=== PATIENT | female | born 1965 | race Caucasian/White ===

== ENCOUNTER 2017-05-20 18:27 | Inpatient (IN) | payer SELFPAY ==
--- NOTE | 2017-05-20 19:07 | ER Document Report ---
ED Medical Screen (RME) - General Chief Complaint: Nausea Stated Complaint: RIGHT SHOULDER PAIN,NAUSEA Time Seen by Provider: 05/20/17 19:06 TRAVEL OUTSIDE OF THE [place] IN LAST 30 DAYS: No - HPI Notes: 05/20/17 19:06 Right shoulder blade pain right lower flank pain mild right upper quadrant discomfort with nausea ongoing 3 weeks unknown if related with food decreased appetite seen by PCP approximately 2-3 weeks ago prescribe oxycodone no relief of symptoms. - Related Data Allergies/Adverse Reactions: No Known Allergies Allergy (Unverified 05/20/17 18:32) Past Medical History Renal/ Medical History: Denies: Hx Peritoneal Dialysis Review of Systems - Review of Systems Constitutional: Other - Shoulder pain nausea Physical Exam - Vital signs Vitals: Temp Pulse Resp BP Pulse Ox 97.9 F 105 H 16 137/94 H 96 05/20/17 18:31 05/20/17 18:31 05/20/17 18:31 05/20/17 18:31 05/20/17 18:31 - Abdominal Notes: Mild right upper quadrant discomfort when palpating Course - Vital Signs Vital signs: Temp Pulse Resp BP Pulse Ox 97.9 F 105 H 16 137/94 H 96 05/20/17 18:31 05/20/17 18:31 05/20/17 18:31 05/20/17 18:31 05/20/17 18:31
[2017-05-20] MEDS ORDERED: NORMAL SALINE 1000 ML 1,000 ML IV ONE ×2 (19:08→21:52)
[2017-05-20 19:44] LABS: ABSOLUTE EOSINOPHILS # (AUTO) 0.1 10^3/uL (0.0-0.6); ABSOLUTE LYMPHOCYTES (AUTO) 1.1 10^3/uL (0.5-4.7); ABSOLUTE MONOCYTES (AUTO) 0.4 10^3/uL (0.1-1.4); ABSOLUTE NEUT (AUTO) 3.4 10^3/uL (1.7-8.2); BASOPHILS % (AUTO) 0.6 % (0-2); EOSINOPHILS % (AUTO) 1.9 % (0-6); HEMATOCRIT 38.6 % (36.0-47.0); HEMOGLOBIN 12.7 g/dL (12.0-15.5); HGB HCT DIFFERENCE -0.5; LYMPHOCYTES % (AUTO) 21.6 % (13-45); MEAN CORPUSCULAR HEMOGLOBIN 29.5 pg (27.0-33.4); MEAN CORPUSCULAR VOLUME 89 fl (80-97); MONOCYTES % (AUTO) 7.7 % (3-13); RED BLOOD COUNT 4.31 10^6/uL (3.72-5.28); RED CELL DISTRIBUTION WIDTH 15.8 % (11.5-14.0); SEGMENTED NEUTROPHILS % (AUTO) 68.2 % (42-78); WHITE BLOOD COUNT 4.9 10^3/uL (4.0-10.5)
[2017-05-20 20:01] LABS: ALANINE AMINOTRANSFERASE 111 U/L (9-52); ALBUMIN 4.4 g/dL (3.5-5.0); ALKALINE PHOSPHATASE 127 U/L (38-126); ANION GAP 15 (5-19); ASPARTATE AMINO TRANSFERASE 233 U/L (14-36); BILIRUBIN,DIRECT 0.8 mg/dL (0.0-0.4); BILIRUBIN,TOTAL 1.1 mg/dL (0.2-1.3); BLOOD UREA NITROGEN 23 mg/dL (7-20); CALCIUM 11.5 mg/dL (8.4-10.2); CARBON DIOXIDE 29 mmol/L (22-30); CHLORIDE 103 mmol/L (98-107); GLUCOSE 93 mg/dL (75-110); LIPASE 250.7 U/L (23-300); POTASSIUM 5.1 mmol/L (3.6-5.0); SODIUM 146.6 mmol/L (137-145); TOTAL PROTEIN 7.5 g/dL (6.3-8.2)
[2017-05-20] MEDS ORDERED: LORAZEPAM INJ 2 MG/1 ML VIAL IV ONE (20:30)
--- NOTE | 2017-05-20 20:30 | RADIOLOGY REPORT (SQ) ---
EXAM DESCRIPTION: SHOULDER RIGHT 2 OR MORE VIEWS COMPLETED DATE/TIME: 05/20/2017 8:15 pm REASON FOR STUDY: ruq pain right shoulder pain COMPARISON: None. NUMBER OF VIEWS: Three views. TECHNIQUE: Internal rotation, external rotation, and Y view images acquired of the right shoulder. LIMITATIONS: None. FINDINGS: MINERALIZATION: Normal. BONES: No acute fracture or dislocation. Patchy small lucencies in the humeral head and neck. JOINTS: No dislocation. VISUALIZED LUNGS AND RIBS: No pneumothorax. No rib fracture. SOFT TISSUES: No radiopaque foreign body. OTHER: No other significant finding. IMPRESSION: PATCHY SMALL LUCENCIES IN THE HUMERAL HEAD AND NECK CONCERNING FOR POSSIBLE METASTASES. MYELOMA IS ANOTHER CONSIDERATION. NO ACUTE FINDINGS. TECHNICAL DOCUMENTATION: JOB ID: [id number] [employer]- All Rights Reserved
[2017-05-20] MEDS ORDERED: KETOROLAC TROMETHAMINE INJ/PF 30 MG/1 ML SDV IV ONE (20:45)
[2017-05-20 20:52] LABS: APPEARANCE,URINE SLIGHTLY-CLOUDY; BILIRUBIN,URINE SMALL (NEGATIVE); CALCIUM OXALATE CRYSTALS,URINE MODERATE /HPF; GLUCOSE, URINE NEGATIVE (NEGATIVE); KETONES,URINE NEGATIVE (NEGATIVE); LEUKOCYTE ESTERASE,URINE NEGATIVE (NEGATIVE); NITRITE,URINE NEGATIVE (NEGATIVE); PROTEIN,URINE NEGATIVE (NEGATIVE); URINE SPECIFIC GRAVITY 1.028
--- NOTE | 2017-05-20 21:10 | ER Document Report ---
ED General - General Chief Complaint: Nausea Stated Complaint: NAUSEA Time Seen by Provider: 05/20/17 19:06 Mode of Arrival: Ambulatory Information source: Patient Notes: This is a 51-year-old female patient presents to the emergency department with about a 3 week history of right posterior shoulder pain. Did have some left shoulder pain as well. Denies any major abdominal pain. Did have some nausea and vomiting about 3 weeks ago. Has also some pain in the left knee. TRAVEL OUTSIDE OF THE [place] IN LAST 30 DAYS: No - HPI Onset/Duration: Gradual, Constant, Intermittent Quality of pain: Dull Severity: Moderate Pain Level: 3 Associated symptoms: None Exacerbated by: Movement Similar symptoms previously: No Recently seen / treated by doctor: No - Related Data Allergies/Adverse Reactions: No Known Allergies Allergy (Unverified 05/20/17 18:32) Past Medical History - General Information source: Patient - Social History Smoking Status: Current Every Day Smoker Chew tobacco use (# tins/day): No - 5-6 cigarettes/day Frequency of alcohol use: None Drug Abuse: None Family History: Reviewed & Not Pertinent Patient has suicidal ideation: No Patient has homicidal ideation: No - Past Medical History Cardiac Medical History: Reports: None Pulmonary Medical History: Reports: None EENT Medical History: Reports: None Neurological Medical History: Reports: None Endocrine Medical History: Reports: None Renal/ Medical History: Reports: None. Denies: Hx Peritoneal Dialysis Malignancy Medical History: Reports: None GI Medical History: Reports: None Musculoskeltal Medical History: Reports Other - Osteoarthritis of the knees Past Surgical History: Reports: Hx Section - x2 Review of Systems - Review of Systems Constitutional: No symptoms reported EENT: No symptoms reported Cardiovascular: No symptoms reported Respiratory: No symptoms reported Gastrointestinal: No symptoms reported Genitourinary: No symptoms reported Female Genitourinary: No symptoms reported Musculoskeletal: No symptoms reported, See HPI Skin: No symptoms reported Hematologic/Lymphatic: No symptoms reported Neurological/Psychological: No symptoms reported Physical Exam - Vital signs Vitals: Temp Pulse Resp BP Pulse Ox 97.9 F 105 H 16 137/94 H 96 05/20/17 18:31 05/20/17 18:31 05/20/17 18:31 05/20/17 18:31 05/20/17 18:31 Interpretation: Normal - General General appearance: Appears well, Alert - HEENT Head: Normocephalic, Atraumatic Eyes: Normal Pupils: PERRL - Respiratory Respiratory status: No respiratory distress Chest status: Nontender Breath sounds: Normal Chest palpation: Normal - Cardiovascular Rhythm: Regular Heart sounds: Normal auscultation Murmur: No - Abdominal Inspection: Normal Distension: No distension Bowel sounds: Normal Tenderness: Nontender Organomegaly: No organomegaly - Back Back: Normal, Nontender - Extremities General upper extremity: Normal inspection, Nontender, Normal color, Normal ROM , Normal temperature General lower extremity: Normal inspection, Nontender, Normal color, Normal ROM , Normal temperature, Normal weight bearing. No: Mian's sign Shoulder: Tender, Other - Mild tenderness to palpation of the posterior right scapula and proximal humerus area there is tenderness to palpation of the left medial knee. No: Limited ROM - Neurological Neuro grossly intact: Yes Cognition: Normal Orientation: AAOx4 Belsano Coma Scale Eye Opening: Spontaneous Anna Coma Scale Verbal: Oriented Anna Coma Scale Motor: Obeys Commands Belsano Coma Scale Total: 15 Speech: Normal Motor strength normal: LUE, RUE, LLE, RLE Sensory: Normal - Psychological Associated symptoms: Normal affect, Normal mood - Skin Skin Temperature: Warm Skin Moisture: Dry Skin Color: Normal Course - Re-evaluation Re-evalutation: 05/20/17 21:53 Etiologies interpretation is concerning for metastatic versus a primary myeloma. Ordering x-rays of the knee. Will give a second liter of fluid. Anti -inflammatories have been given. Hepatitis panel is ordered. May need to expand workup as well. Possible admit. 05/20/17 23:01 I did consult with the hospitalist. Will admit at this time. 05/20/17 23:01 Abdomen Ultrasound 05/20/17 19:06 IMPRESSION: HEPATOMEGALY WITH MULTIPLE LARGE HYPOECHOIC LESIONS THROUGHOUT THE LIVER, HIGHLY SUSPICIOUS FOR EXTENSIVE METASTASES. RECOMMEND FOLLOWUP WITH CT. Shoulder X-Ray 05/20/17 19:06 IMPRESSION: PATCHY SMALL LUCENCIES IN THE HUMERAL HEAD AND NECK CONCERNING FOR POSSIBLE METASTASES. MYELOMA IS ANOTHER CONSIDERATION. NO ACUTE FINDINGS. Chest X-Ray 05/20/17 20:46 IMPRESSION: NO SIGNIFICANT RADIOGRAPHIC FINDING IN THE CHEST. Knee X-Ray 05/20/17 21:50 IMPRESSION: NEGATIVE STUDY OF THE LEFT KNEE. NO EXPLANATION FOR PAIN. - Vital Signs Vital signs: Temp Pulse Resp BP Pulse Ox 97.9 F 105 H 16 137/94 H 96 05/20/17 18:31 05/20/17 18:31 05/20/17 18:31 05/20/17 18:31 05/20/17 18:31 - Laboratory Result Diagrams: 05/20/17 19:30 05/20/17 19:30 Laboratory results interpreted by me: 05/20/17 05/20/17 05/20/17 19:30 19:30 19:30 RDW 15.8 H Plt Count 135 L ESR Sodium 146.6 H Potassium 5.1 H BUN 23 H Est GFR ( Amer) 58 L Est GFR (Non-Af Amer) 48 L Calcium 11.5 H Direct Bilirubin 0.8 H AST 233 H ALT 111 H Alkaline Phosphatase 127 H C-Reactive Protein TSH Urine Bilirubin SMALL H Urine Urobilinogen 4.0 H 05/20/17 05/20/17 05/20/17 19:30 19:30 19:30 RDW Plt Count ESR 31 H Sodium Potassium BUN Est GFR ( Amer) Est GFR (Non-Af Amer) Calcium Direct Bilirubin AST ALT Alkaline Phosphatase C-Reactive Protein 38.6 H TSH 6.65 H Urine Bilirubin Urine Urobilinogen Discharge - Discharge Clinical Impression: Multiple lesions of metastatic malignancy Disposition: ADMITTED INPATIENT Admitting Provider: Hospitalist - Dr. Lynn Unit Admitted: Telemetry
--- NOTE | 2017-05-20 21:23 | RADIOLOGY REPORT (SQ) ---
EXAM DESCRIPTION: CHEST PA/LAT COMPLETED DATE/TIME: 05/20/2017 9:09 pm REASON FOR STUDY: right chest pain COMPARISON: None. EXAM PARAMETERS: NUMBER OF VIEWS: two views TECHNIQUE: Digital Frontal and Lateral radiographic views of the chest acquired. RADIATION DOSE: NA LIMITATIONS: none FINDINGS: LUNGS AND PLEURA: No opacities, masses or pneumothorax. No pleural effusion. MEDIASTINUM AND HILAR STRUCTURES: No masses or contour abnormalities. HEART AND VASCULAR STRUCTURES: Heart normal size. No evidence for failure. BONES: No acute findings. HARDWARE: None in the chest. OTHER: No other significant finding. IMPRESSION: NO SIGNIFICANT RADIOGRAPHIC FINDING IN THE CHEST. TECHNICAL DOCUMENTATION: JOB ID: [id number] [employer]- All Rights Reserved
--- NOTE | 2017-05-20 22:05 | RADIOLOGY REPORT (SQ) ---
EXAM DESCRIPTION: U/S ABDOMEN LIMITED W/O DOP COMPLETED DATE/TIME: 05/20/2017 9:56 pm REASON FOR STUDY: ruq pain right shoulder pain COMPARISON: None. TECHNIQUE: Dynamic and static grayscale images acquired of the abdomen and recorded on PACS. Additio nal selected color Doppler and spectral images recorded. LIMITATIONS: None. FINDINGS: PANCREAS: No masses. Visualized pancreatic duct normal caliber. LIVER: Enlarged, measuring 23 cm. Multiple large hypoechoic lesions throughout the liver. No dilate d ducts. LIVER VASCULATURE: Normal directional flow of the main portal vein and hepatic veins. GALLBLADDER: No stones. Normal wall thickness. No pericholecystic fluid. ULTRASOUND-DETECTED WILLS'S SIGN: Negative. INTRAHEPATIC DUCTS AND COMMON DUCT: CBD and intrahepatic ducts normal caliber. No filling defects. INFERIOR VENA CAVA: Normal flow. AORTA: No aneurysm. RIGHT KIDNEY: Normal size. Normal echogenicity. No solid or suspicious masses. No hydronephrosis. No calcifications. PERITONEAL AND RIGHT PLEURAL SPACE: No ascites or effusions. OTHER: No other significant findings. IMPRESSION: HEPATOMEGALY WITH MULTIPLE LARGE HYPOECHOIC LESIONS THROUGHOUT THE LIVER, HIGHLY SUSPICI OUS FOR EXTENSIVE METASTASES. RECOMMEND FOLLOWUP WITH CT. TECHNICAL DOCUMENTATION: JOB ID: [id number] [employer]- All Rights Reserved
--- NOTE | 2017-05-20 22:21 | RADIOLOGY REPORT (SQ) ---
EXAM DESCRIPTION: KNEE LEFT 3 VIEWS COMPLETED DATE/TIME: 05/20/2017 10:11 pm REASON FOR STUDY: pain COMPARISON: None. NUMBER OF VIEWS: Four views. TECHNIQUE: AP, lateral, and sunrise patella radiographic images acquired of the left knee. LIMITATIONS: None. FINDINGS: MINERALIZATION: Normal. BONES: No acute fracture or dislocation. No worrisome bone lesions. No significant osteophytes. JOINT: No effusion. No chondrocalcinosis. OTHER: No other significant finding. IMPRESSION: NEGATIVE STUDY OF THE LEFT KNEE. NO EXPLANATION FOR PAIN. TECHNICAL DOCUMENTATION: JOB ID: [id number] [employer]- All Rights Reserved
[2017-05-20 22:36] LABS: THYROID STIMULATING HORMONE 6.65 uIU/mL (0.47-4.68)
[2017-05-20] MEDS ORDERED: ACETAMINOPHEN 325 MG TABLET PO PRN (22:55)
[2017-05-20] MEDS ORDERED: MAG HYDROX/AL HYDROX/SIMETH SUSP 30 ML UDCUP PO PRN (22:55)
[2017-05-20] MEDS ORDERED: ONDANSETRON HCL INJ/PF 4 MG/2 ML SDV IV PRN (22:55)
[2017-05-20] MEDS ORDERED: IPRATROPIUM/ALBUTEROL 0.5-2.5 MG/3 ML AMPUL NEB PRN (22:55)
[2017-05-20] MEDS ORDERED: HYDROCODONE/ACETAMINOPHEN 5-325 MG TABLET PO PRN (23:13)
[2017-05-20] MEDS ORDERED: LACTULOSE SYRUP 20 GM/30 ML UDCUP PO ONE (23:16)
[2017-05-20 23:30] LABS: PROTHROMBIN TIME 13.7 SEC (11.4-15.4)
[2017-05-21] MEDS: NORMAL SALINE 1000 ML 1,000 ML IV SCH ×3 (03:27→11:38)
--- NOTE | 2017-05-21 03:28 | RADIOLOGY REPORT (SQ) ---
EXAM DESCRIPTION: CT CHEST WITH COMPLETED DATE/TIME: 05/21/2017 3:02 am REASON FOR STUDY: liver masses unknown primary COMPARISON: None. TECHNIQUE: CT scan of the chest performed using helical scanning technique with dynamic intravenous contrast injection. Images reviewed with lung, soft tissue and bone windows. Reconstructed coronal and sagittal MPR images reviewed. All images stored on PACS. All CT scanners at this facility use dose modulation, iterative reconstruction, and/or weight based d osing when appropriate to reduce radiation dose to as low as reasonably achievable (ALARA). [facility]: Dose Right [facility]: CareDose [facility]: Dose Right [facility]: Teradose 4D [facility]: Eqvilibria CONTRAST TYPE AND DOSE: contrast/concentration: Isovue 370.00 mg/ml; Total Contrast Delivered: 100.0 ml; Total Saline Delivered: 72.1 ml RENAL FUNCTION: Creatinine 1.2 RADIATION DOSE: . LIMITATIONS: None. FINDINGS: LUNGS AND PLEURA: 2.1 cm ovoid soft tissue attenuation mass of the right lower lobe, image 34 of series 3 Small left lower lobar atelectasis or scar. HILAR AND MEDIASTINAL STRUCTURES: [id number] mediastinal lymphadenopathy includes a 1.6 cm pret akbar lymph node, image 21 of series 3. HEART AND VASCULAR STRUCTURES: No aneurysm or dissection. No central pulmonary emboli. No pericardi al effusion. HARDWARE: None in the chest. UPPER ABDOMEN: See separate report of the CT of the abdomen. THYROID AND OTHER SOFT TISSUES: No masses. No adenopathy. BONES: Mild right 7th posterolateral rib deformity may indicate prior injury. OTHER: No other significant finding. IMPRESSION: 2.1 cm right lower lobar pulmonary mass and mild -moderate mediastinal lymphadenopathy. Abnormal CT of the abdomen pelvis reported separately. Malignancy is of 1st consideration. TECHNICAL DOCUMENTATION: JOB ID: [id number] Quality ID # [id number]: Final reports with documentation of one or more dose reduction techniques (e.g., Au tomated exposure control, adjustment of the mA and/or kV according to patient size, use of iterative reconstruction technique) 2010 [employer]- All Rights Reserved
--- NOTE | 2017-05-21 04:35 | RADIOLOGY REPORT (SQ) ---
EXAM DESCRIPTION: CT ABD/PELVIS WITH IV ORAL COMPLETED DATE/TIME: 05/21/2017 3:02 am REASON FOR STUDY: liver masses unknown primary COMPARISON: None. TECHNIQUE: CT scan of the abdomen and pelvis performed using helical scanning technique with dynamic intravenous contrast injection. No oral contrast. Images reviewed with lung, soft tissue, and bone windows. Reconstructed coronal and sagittal MPR images reviewed. Delayed images for evaluation of the urinary system also acquired. All images stored on PACS. All CT scanners at this facility use dose modulation, iterative reconstruction, and/or weight based d osing when appropriate to reduce radiation dose to as low as reasonably achievable (ALARA). [facility]: Dose Right [facility]: CareDose [facility]: Dose Right [facility]: Teradose 4D [facility]: Cardio control CONTRAST TYPE AND DOSE: 100 cc Isovue 370- low osmolar. RENAL FUNCTION: Creatinine 1.2 RADIATION DOSE: Up-to-date CT equipment and radiation dose reduction techniques were employed. CTDIv ol: 21.1 mGy. DLP: 2947 mGy-cm.. LIMITATIONS: None. FINDINGS: LOWER CHEST: See separate report of the CT of the chest. LIVER: Numerous solid liver masses with central diminished attenuation include a 3.6 cm left hepatic mass and 4.2 cm right hepatic mass. SPLEEN: Multiple small ovoid masses include a 1.8 cm mass, image 49 of series 3. PANCREAS: No masses. No significant calcifications. No adjacent inflammation or peripancreatic fluid collections. Pancreatic duct not dilated. GALLBLADDER: No identified stones by CT criteria. No inflammatory changes to suggest cholecystitis. ADRENAL GLANDS: No significant masses or asymmetry. RIGHT KIDNEY AND URETER: No solid masses. No significant calcifications. No hydronephrosis or hyd roureter. LEFT KIDNEY AND URETER: No solid masses. No significant calcifications. No hydronephrosis or hydr oureter. AORTA AND VESSELS: No aneurysm. No dissection. Renal arteries, SMA, celiac without stenosis. RETROPERITONEUM: No retroperitoneal adenopathy, hemorrhage or masses. BOWEL AND PERITONEAL CAVITY: Moderate colonic diverticulosis. Mild diffuse bowel wall thickening of the sigmoid colon. Moderate mediastinal lymphadenopathy includes a 1.3 cm lymph node in the right up per abdomen, image 59 of series 3. APPENDIX: Normal. PELVIS: No mass. No free fluid. Normal bladder. ABDOMINAL WALL: No masses. Moderate protrude rinse of the anterior abdomen and 3.5 cm umbilical fat only hernia. BONES: Mild vertebral height loss at the L4 level. Moderate -large disc bulge -osteophyte complex at the L5-S1 level causes mild -moderate central spinal canal stenosis and moderate bilateral L5 forami nal stenoses. OTHER: No other significant finding. IMPRESSION: Numerous liver and spleen masses, moderate upper abdominal lymphadenopathy, and mild dif fuse sigmoid bowel wall thickening. Abnormal CT of the chest reported separately. Malignancy is of 1st consideration. TECHNICAL DOCUMENTATION: JOB ID: [id number] Quality ID # [id number]: Final reports with documentation of one or more dose reduction techniques (e.g., Au tomated exposure control, adjustment of the mA and/or kV according to patient size, use of iterative reconstruction technique) 2010 [employer]- All Rights Reserved
[2017-05-21] MEDS: HEPARIN SOD (PORCINE) 5,000 UNIT/ML 1 ML SYRINGE SUBCUT SCH ×2 (05:04→13:47)
--- NOTE | 2017-05-21 05:34 | PDOC H&P ---
History of Present Illness Admission Date/PCP: 05/20/17 22:55 Patient complains of: Poor appetite and joint pain History of Present Illness: BONIFACIO WHITNEY is a 51 year old female with a past medical history of osteoarthritis, obesity and tobacco is been her usual state of health until approximately 3 weeks ago noted to have exceptional early satiety and bilateral shoulder pain. She denies chest pain, shortness of breath fever chills nausea or vomiting. In the emergency room she is found to have abnormal LFTs thrombocytopenia, hypercalcemia, hyper kalemia and right upper quadrant ultrasound concerning for liver mass. She started on IV fluid hydration and referred to the hospitalist for admission. She has not had routine Pap, colonoscopy or mammography. Her family history is notable for a brother with hepatitis C and hepatocellular carcinoma. Past Medical History Cardiac Medical History: Reports: None Pulmonary Medical History: Reports: None EENT Medical History: Reports: None Neurological Medical History: Reports: None Endocrine Medical History: Reports: None Renal/ Medical History: Reports: None Malignancy Medical History: Reports: None GI Medical History: Reports: None Musculoskeltal Medical History: Reports: Arthritis, Other - Osteoarthritis of the knees Psychiatric Medical History: Reports: None, Tobacco Dependency Past Surgical History Past Surgical History: Reports: Section - x2 Social History Smoking Status: Current Some Day Smoker Cigarettes Packs Per Day: 1 Number of Years Smokin Last Time Smoked: 05/20/2017 Frequency of Alcohol Use: None Hx Recreational Drug Use: No Drugs: None Hx Prescription Drug Abuse: No - Advance Directive Resuscitation Status: Full Code Family History Family History: Other - Brother with hepatitis C and hepatocellular carcinoma Parental Family History Reviewed: Yes Children Family History Reviewed: Yes Sibling(s) Family History Reviewed.: Yes Medication/Allergy Home Medications: No Home Medications 05/21/17 Allergies/Adverse Reactions: No Known Allergies Allergy (Unverified 05/20/17 18:32) Review of Systems Constitutional: PRESENT: as per HPI, anorexia, fatigue. ABSENT: night sweats Eyes: ABSENT: visual disturbances Ears: ABSENT: hearing changes Cardiovascular: ABSENT: chest pain, dyspnea on exertion, edema, orthropnea, palpitations Respiratory: ABSENT: cough, hemoptysis Gastrointestinal: ABSENT: abdominal pain, constipation, diarrhea, hematemesis, hematochezia, nausea, vomiting Genitourinary: ABSENT: dysuria, hematuria Musculoskeletal: PRESENT: as per HPI Integumentary: ABSENT: rash, wounds Neurological: ABSENT: abnormal gait, abnormal speech, confusion, dizziness, focal weakness, syncope Psychiatric: ABSENT: anxiety, depression, homidical ideation, suicidal ideation Endocrine: ABSENT: cold intolerance, heat intolerance, polydipsia, polyuria Hematologic/Lymphatic: ABSENT: easy bleeding, easy bruising Physical Exam Vital Signs: Temp Pulse Resp BP Pulse Ox 98.4 F 91 14 131/63 H 97 05/21/17 03:50 05/21/17 03:50 05/21/17 03:50 05/21/17 03:50 05/21/17 03:50 Intake & Output 05/19/17 05/20/17 05/21/17 11:59 11:59 11:59 Intake Total 513 Balance 513 Weight 114.7 kg General appearance: PRESENT: no acute distress, obese Head exam: PRESENT: atraumatic, normocephalic Eye exam: PRESENT: conjunctiva pink, EOMI, PERRLA. ABSENT: scleral icterus Ear exam: PRESENT: normal external ear exam Mouth exam: PRESENT: moist, tongue midline Neck exam: ABSENT: carotid bruit, JVD, lymphadenopathy, thyromegaly Respiratory exam: PRESENT: clear to auscultation jonnathan. ABSENT: crackles, decreased breath sounds, prolonged expiratory phas, rales, retraction, rhonchi, wheezes Cardiovascular exam: PRESENT: RRR. ABSENT: diastolic murmur, rubs, systolic murmur Pulses: PRESENT: normal dorsalis pedis pul Vascular exam: PRESENT: normal capillary refill GI/Abdominal exam: PRESENT: normal bowel sounds, soft. ABSENT: distended, guarding, mass, organolmegaly, rebound, tenderness Musculoskeletal exam: PRESENT: other - Tender to palpation of the right scapula Neurological exam: PRESENT: alert, awake, oriented to person, oriented to place , oriented to time, oriented to situation, CN II-XII grossly intact. ABSENT: motor sensory deficit Psychiatric exam: PRESENT: appropriate affect, normal mood. ABSENT: homicidal ideation, suicidal ideation Skin exam: PRESENT: dry, intact, warm. ABSENT: cyanosis, rash Results Impressions: Abdomen Ultrasound 05/20/17 19:06 IMPRESSION: HEPATOMEGALY WITH MULTIPLE LARGE HYPOECHOIC LESIONS THROUGHOUT THE LIVER, HIGHLY SUSPICIOUS FOR EXTENSIVE METASTASES. RECOMMEND FOLLOWUP WITH CT. Shoulder X-Ray 05/20/17 19:06 IMPRESSION: PATCHY SMALL LUCENCIES IN THE HUMERAL HEAD AND NECK CONCERNING FOR POSSIBLE METASTASES. MYELOMA IS ANOTHER CONSIDERATION. NO ACUTE FINDINGS. Chest X-Ray 05/20/17 20:46 IMPRESSION: NO SIGNIFICANT RADIOGRAPHIC FINDING IN THE CHEST. Knee X-Ray 05/20/17 21:50 IMPRESSION: NEGATIVE STUDY OF THE LEFT KNEE. NO EXPLANATION FOR PAIN. Abdomen/Pelvis CT 05/21/17 00:00 IMPRESSION: Numerous liver and spleen masses, moderate upper abdominal lymphadenopathy, and mild diffuse sigmoid bowel wall thickening. Abnormal CT of the chest reported separately. Malignancy is of 1st consideration. Chest CT 05/21/17 00:00 IMPRESSION: 2.1 cm right lower lobar pulmonary mass and mild -moderate mediastinal lymphadenopathy. Abnormal CT of the abdomen pelvis reported separately. Malignancy is of 1st consideration. Assessment & Plan - Diagnosis (1) Multiple lesions of metastatic malignancy Is this a current diagnosis for this admission?: Yes Plan: Patient is at risk for lost to follow-up telemetry admission, SPEP and UPEP ordered CT abdomen and chest pending. Surgical consult if biopsy viable and oncology follow-up. (2) Hypercalcemia Is this a current diagnosis for this admission?: Yes Plan: IV fluid hydration and loop diuretic reevaluation of chemistry consider bisphosphonate (3) Hyperkalemia Is this a current diagnosis for this admission?: Yes Plan: IV fluid hydration Kayexalate reevaluation of chemistry (4) Tobacco dependence Is this a current diagnosis for this admission?: Yes Plan: Tobacco Dependence patient received tobacco cessation counseling and offered nicotine replacement options. - Time Time Spent: 50 to 70 Minutes - Inpatient Certification Medical Necessity: Need Close Monitoring Due to Risk of Patient Decompensation
[2017-05-21 06:21] LABS: ABSOLUTE EOSINOPHILS # (AUTO) 0.1 10^3/uL (0.0-0.6); ABSOLUTE LYMPHOCYTES (AUTO) 0.8 10^3/uL (0.5-4.7); ABSOLUTE MONOCYTES (AUTO) 0.3 10^3/uL (0.1-1.4); ABSOLUTE NEUT (AUTO) 2.4 10^3/uL (1.7-8.2); BASOPHILS % (AUTO) 0.8 % (0-2); EOSINOPHILS % (AUTO) 2.9 % (0-6); HEMATOCRIT 33.4 % (36.0-47.0); HEMOGLOBIN 11.2 g/dL (12.0-15.5); HGB HCT DIFFERENCE 0.2; LYMPHOCYTES % (AUTO) 22.5 % (13-45); MEAN CORPUSCULAR HEMOGLOBIN 29.7 pg (27.0-33.4); MEAN CORPUSCULAR HGB CONC 33.6 g/dL (32.0-36.0); MEAN CORPUSCULAR VOLUME 89 fl (80-97); MONOCYTES % (AUTO) 8.5 % (3-13); RED BLOOD COUNT 3.77 10^6/uL (3.72-5.28); RED CELL DISTRIBUTION WIDTH 15.4 % (11.5-14.0); SEGMENTED NEUTROPHILS % (AUTO) 65.3 % (42-78); WHITE BLOOD COUNT 3.7 10^3/uL (4.0-10.5)
[2017-05-21 06:46] LABS: ALANINE AMINOTRANSFERASE 91 U/L (9-52); ALBUMIN 3.4 g/dL (3.5-5.0); ALKALINE PHOSPHATASE 103 U/L (38-126); ANION GAP 9 (5-19); ASPARTATE AMINO TRANSFERASE 201 U/L (14-36); BILIRUBIN,DIRECT 0.6 mg/dL (0.0-0.4); BILIRUBIN,TOTAL 0.8 mg/dL (0.2-1.3); BLOOD UREA NITROGEN 21 mg/dL (7-20); CALCIUM 10.1 mg/dL (8.4-10.2); CARBON DIOXIDE 29 mmol/L (22-30); CHLORIDE 106 mmol/L (98-107); CREATININE RESULT 1.19 mg/dL (0.52-1.25); GLUCOSE 110 mg/dL (75-110); SODIUM 143.9 mmol/L (137-145); TOTAL PROTEIN 6.1 g/dL (6.3-8.2)
[2017-05-21 06:50] LABS: POTASSIUM 4.1 mmol/L (3.6-5.0)
[2017-05-21] MEDS ORDERED: DOCUSATE SODIUM 100 MG CAPSULE PO SCH (10:00)
--- NOTE | 2017-05-21 10:34 | EKG REPORT ---
SEVERITY:- ABNORMAL ECG - SINUS RHYTHM PROBABLE LEFT VENTRICULAR HYPERTROPHY CONSIDER ANTERIOR INFARCT : Confirmed by: Brad Tena 21-May-2017 10:33:52
[2017-05-21] MEDS: HYDROCODONE/ACETAMINOPHEN 5-325 MG TABLET PO SCH ×2 (12:03→13:47)
[2017-05-21] MEDS ORDERED: MIDAZOLAM 2 MG/2 ML INJ ONE (13:17)
[2017-05-21] MEDS ORDERED: FENTANYL CITRATE INJ/PF 100 MCG/2 ML AMPUL ONE (13:18)
--- NOTE | 2017-05-21 15:20 | RADIOLOGY REPORT (SQ) ---
EXAM DESCRIPTION: CT BIOPSY LIVER; CT NEEDLE PLACEMENT COMPLETED DATE/TIME: 05/21/2017 2:35 pm REASON FOR STUDY: LIVER MASS COMPARISON: CT dated 05/21/2017. TECHNIQUE: After obtaining informed consent, the patient was brought to the CT suite and was placed supine on the CT gurney. The patient was prepped and draped in the usual sterile fashion . Axial huber ges were obtained for targeting of the mass in the left lobe. An appropriate access site was selected . IV sedation was administered and physician direction by the registered nurse using 1 milligrams of Versed and 100 micrograms of fentanyl. Physiologic monitoring was provided before, during, and after sedation. The total sedation time was 40 minutes. Documentation face to face time, the performing proceduralist, spent monitoring the patient: 15minute s. Noncontrasted CT of the liver was performed to localize an approach for the left lobe liver biopsy. A percutaneous site was marked. Time out was performed. After skin prep and local lidocaine for skin and deep tissue anesthesia, a coaxial biopsy needle sys tem was used to obtain several cores of tissue from the left lobe of the liver. These were submitted to the lab in formalin. Biopsy tract was embolized with a Gelfoam plug. No immediate postprocedure complications. Total of 6.[address] fluoro was used. All CT scanners at this facility use dose modulation, iterative reconstruction, and/or weight based d osing when appropriate to reduce radiation dose to as low as reasonably achievable (ALARA). [facility]: Dose Right [facility]: CareDose [facility]: Dose Right [facility]: Teradose 4D [facility]: [employer] Technologies RADIATION DOSE: Up-to-date CT equipment and radiation dose reduction techniques were employed. CTDIv ol: 4.0 - 20.3 mGy. DLP: 459 mGy-cm. mGy. LIMITATIONS: None. FINDINGS: CT guided liver biopsy as detailed above. IMPRESSION: CT GUIDED LEFT LOBE LIVER BIOPSY PERFORMED ABOVE. PATHOLOGY PENDING. NO IMMEDIATE COMPLICATIONS. COMMENT: Patient medication list reviewed:Yes- Quality ID# [id number]:Eligible professional attests to docu menting in the medical record they obtained, updated, or reviewed the patient's current medications.. Quality ID 145: Final reports for procedures using fluoroscopy that document radiation exposure corinna santino, or exposure time and number of fluorographic images (if radiation exposure indices are not avail able) TECHNICAL DOCUMENTATION: JOB ID: [id number] Quality ID # [id number]: Final reports with documentation of one or more dose reduction techniques (e.g., A utomated exposure control, adjustment of the mA and/or kV according to patient size, use of iterative reconstruction technique) 2010 [employer]- All Rights Reserved
[2017-05-21 16:30] VITALS: BP 125/70
--- NOTE | 2017-05-21 16:42 | PDOC DISCHARGE SUMMARY ---
General - Admit/Disc Date/PCP Admission Date/Primary Care Provider: 05/20/17 22:55 Discharge Date: 05/21/17 - Discharge Diagnosis (1) Multiple lesions of metastatic malignancy Is this a current diagnosis for this admission?: Yes Summary: PT presented to the ED with reports of generalized joint pain and early satiety. Her work up found abnormal LFTs, thrombocytopenia, hypercalcemia, hyperkalemia, and a right upper quadrant ultrasound that was concerning for liver mass. She was admitted to observation status to complete the initial work up to include SPEP, UPEP, CT Chest and Abdomen. CT imaging further demonstrated a RLL pulmonary mass with mediastinal lymphadenopathy as well as numerous liver and spleen masses with moderate abdominal lymphadenopathy and mild diffuse bowel wall thickening. She then underwent a CT guided needle liver biopsy. Her case was briefly discussed with Dr. Shah who would like her to follow up in his office next week. The patient's pain was managed with p.o. Tylenol. She is discharged home with an rx for hydrocodone and a small amount of low dose ativan as she has been understandably distressed by these findings. (2) Hypercalcemia Is this a current diagnosis for this admission?: Yes Summary: Resolved quickly with IVF and loop diuretics. (3) Hyperkalemia Is this a current diagnosis for this admission?: Yes Summary: Resolved quickly with IVF and kayexalate. (4) Tobacco dependence Is this a current diagnosis for this admission?: Yes - Additional Information Resuscitation Status: Full Code Discharge Diet: As Tolerated Discharge Activity: Activity As Tolerated, Balance Activity w/Rest Home Medications: Hydrocodone/Acetaminophen [Hydrocodon-Acetaminophen 5-325] 1 each PO Q6HP PRN # 12 tablet 05/21/17 Lorazepam [Ativan 0.5 mg Tablet] 0.5 mg PO Q6HP PRN #4 tab 05/21/17 History of Present Illness History of Present Illness: Per H&P by Dr. Lynn: BONIFACIO WHITNEY is a 51 year old female with a past medical history of ostearthritis, obesity and tobacco is been her usual state of health until approximately 3 weeks ago noted to have exceptional early satiety and bilateral shoulder pain. She denies chest pain, shortness of breath fever chills nausea or vomiting. In the emergency room she is found to have abnormal LFTs thrombocytopenia, hypercalcemia, hyperkalemia and right upper quadrant ultrasound concerning for liver mass. She started on IV fluid hydration and referred to the hospitalist for admission. She has not had routine Pap, colonoscopy or mammography. Her family history is notable for a brother with hepatitis C and hepatocellular carcinoma. Physical Exam Vital Signs: Temp Pulse Resp BP Pulse Ox 98.6 F 97 18 125/70 98 05/21/17 15:43 05/21/17 16:04 05/21/17 15:43 05/21/17 15:43 05/21/17 15:43 Intake & Output 05/20/17 05/21/17 05/22/17 06:59 06:59 06:59 Intake Total 1213 0 Balance 1213 0 Weight 118.1 kg 118.1 kg General appearance: PRESENT: no acute distress, obese, well-developed, well- nourished Head exam: PRESENT: atraumatic, normocephalic Eye exam: PRESENT: conjunctiva pink, EOMI, PERRLA. ABSENT: scleral icterus Ear exam: PRESENT: normal external ear exam Mouth exam: PRESENT: moist, tongue midline Neck exam: ABSENT: carotid bruit, JVD, lymphadenopathy, thyromegaly Respiratory exam: PRESENT: clear to auscultation jonnathan, symmetrical, unlabored. ABSENT: rales, rhonchi, wheezes Cardiovascular exam: PRESENT: RRR, +S1, +S2. ABSENT: diastolic murmur, rubs, systolic murmur Pulses: PRESENT: normal dorsalis pedis pul Vascular exam: PRESENT: normal capillary refill GI/Abdominal exam: PRESENT: normal bowel sounds, soft. ABSENT: distended, guarding, mass, organolmegaly, rebound, tenderness Rectal exam: PRESENT: deferred Extremities exam: PRESENT: full ROM. ABSENT: calf tenderness, clubbing, pedal edema Neurological exam: PRESENT: alert, awake, oriented to person, oriented to place , oriented to time, oriented to situation, CN II-XII grossly intact. ABSENT: motor sensory deficit Psychiatric exam: PRESENT: appropriate affect, normal mood. ABSENT: homicidal ideation, suicidal ideation Skin exam: PRESENT: dry, intact, warm. ABSENT: cyanosis, rash Results Laboratory Results: 05/21/17 05:05 05/21/17 05:05 05/21/17 05/21/17 05:05 05:05 WBC 3.7 L RBC 3.77 Hgb 11.2 L Hct 33.4 L MCV 89 MCH 29.7 MCHC 33.6 RDW 15.4 H Plt Count 113 L Seg Neutrophils % 65.3 Lymphocytes % 22.5 Monocytes % 8.5 Eosinophils % 2.9 Basophils % 0.8 Absolute Neutrophils 2.4 Absolute Lymphocytes 0.8 Absolute Monocytes 0.3 Absolute Eosinophils 0.1 Absolute Basophils 0.0 Sodium 143.9 Potassium 4.1 D Chloride 106 Carbon Dioxide 29 Anion Gap 9 BUN 21 H Creatinine 1.19 Est GFR ( Amer) 58 L Est GFR (Non-Af Amer) 48 L Glucose 110 Calcium 10.1 Total Bilirubin 0.8 AST 201 H ALT 91 H Alkaline Phosphatase 103 Total Protein 6.1 L Albumin 3.4 L Impressions: Abdomen Ultrasound 05/20/17 19:06 IMPRESSION: HEPATOMEGALY WITH MULTIPLE LARGE HYPOECHOIC LESIONS THROUGHOUT THE LIVER, HIGHLY SUSPICIOUS FOR EXTENSIVE METASTASES. RECOMMEND FOLLOWUP WITH CT. Shoulder X-Ray 05/20/17 19:06 IMPRESSION: PATCHY SMALL LUCENCIES IN THE HUMERAL HEAD AND NECK CONCERNING FOR POSSIBLE METASTASES. MYELOMA IS ANOTHER CONSIDERATION. NO ACUTE FINDINGS. Chest X-Ray 05/20/17 20:46 IMPRESSION: NO SIGNIFICANT RADIOGRAPHIC FINDING IN THE CHEST. Knee X-Ray 05/20/17 21:50 IMPRESSION: NEGATIVE STUDY OF THE LEFT KNEE. NO EXPLANATION FOR PAIN. Abdomen/Pelvis CT 05/21/17 00:00 IMPRESSION: Numerous liver and spleen masses, moderate upper abdominal lymphadenopathy, and mild diffuse sigmoid bowel wall thickening. Abnormal CT of the chest reported separately. Malignancy is of 1st consideration. Chest CT 05/21/17 00:00 IMPRESSION: 2.1 cm right lower lobar pulmonary mass and mild -moderate mediastinal lymphadenopathy. Abnormal CT of the abdomen pelvis reported separately. Malignancy is of 1st consideration. Guidance Needle Placement CT 05/21/17 00:00 IMPRESSION: CT GUIDED LEFT LOBE LIVER BIOPSY PERFORMED ABOVE. PATHOLOGY PENDING. NO IMMEDIATE COMPLICATIONS. Liver Biopsy CT 05/21/17 00:00
[2017-05-24 14:39] LABS: BETA GLOBULIN UR 38.7 % (.); GAMMA GLOBULIN UR 17.5 % (.); M-SPIKE % URINE Not Observed % (Not Observed)
[2017-05-25 11:39] LABS: ALBUMIN 3 3.2 g/dL (2.9-4.4); ALPHA-1-GLOBULIN 0.3 g/dL (0.0-0.4); ALPHA-2-GLOBULIN 3 0.7 g/dL (0.4-1.0); BETA GLOBULIN 0.8 g/dL (0.7-1.3); GLOBULIN TTL 2.7 g/dL (2.2-3.9); IMMUNOGLOBULIN A 123 mg/dL (87-352); IMMUNOGLOBULIN G 869 mg/dL (700-1600); IMMUNOGLOBULIN M 196 mg/dL (26-217); MONOCLONAL-SPIKE Not Observed g/dL (Not Observed); PROTEIN TOTAL SERUM 5.9 g/dL (6.0-8.5)
== END 2017-05-21 17:01 | disposition home or self-care (01) | DRG 844 ==
LOC: ER 18:27 → EH 22:55 → 4W 05-21 00:57 → 3N 05-21 04:20
PROVIDERS: ADMIT Internal Medicine; ATTEND Internal Medicine
PROC: 3E0F73Z Introduction of Anti-inflammatory into Respiratory Tract, Via Natural or Artificial Opening (ICD-10-PCS; 2017-05-20)
PROC: 0FB23ZX Excision of Left Lobe Liver, Percutaneous Approach, Diagnostic (ICD-10-PCS; principal; 2017-05-21)
DX: C79.9 Secondary malignant neoplasm of unspecified site (principal); Z68.41 Body mass index [BMI] 40.0-44.9, adult; D69.6 Thrombocytopenia, unspecified; E83.52 Hypercalcemia; E87.5 Hyperkalemia; F17.210 Nicotine dependence, cigarettes, uncomplicated; M17.0 Bilateral primary osteoarthritis of knee; E66.9 Obesity, unspecified; R16.0 Hepatomegaly, not elsewhere classified; R16.1 Splenomegaly, not elsewhere classified; R91.8 Other nonspecific abnormal finding of lung field; Z80.0 Family history of malignant neoplasm of digestive organs
CPT/HCPCS: 36415; 47000; 71020; 71260; 74177; 76705; 77012; 80053; 80074; 81001; 83690; 84156; 84165; 84166; 84439; 84443; 84484; 85025; 85610; 85652; 85730; 86140; 86320; 86335; 88305; 88313; 88341; 88342; 93005; 93010; 96361; 96374; 99285; J1644; J1885; J2250; J3010; J7030

== ENCOUNTER → 2017-06-03 | Outpatient (CLI) | payer SELFPAY ==
--- NOTE | 2017-06-03 14:41 | RADIOLOGY REPORT (SQ) ---
EXAM DESCRIPTION: MRI HEAD COMBO COMPLETED DATE/TIME: 06/03/2017 11:21 am REASON FOR STUDY: LUNG CA (C34.31) C34.31 MALIGNANT NEOPLASM OF LOWER LOBE, RIGHT BRONCHUS OR L COMPARISON: CT chest abdomen pelvis 05/21/2017 TECHNIQUE: Multiplanar imaging includes noncontrasted T1, T2, FLAIR, diffusion with ADC map and post gadolinium contrast T1 sequences. Images stored on PACS. CONTRAST TYPE AND DOSE: 10 mL Multihance. RENAL FUNCTION: GFR > 60. LIMITATIONS: None. FINDINGS: ANATOMY: No developmental anomalies. Normal vascular flow voids. Pituitary fossa normal. CSF SPACES: Normal in size and contour. No hemorrhage. CEREBRUM: Sulci and gyri normal in size and contour. Normal white matter signal on FLAIR imaging. No evidence of hemorrhage, mass, or extraaxial fluid collection. No abnormal enhancement post contrast. POSTERIOR FOSSA: No signal alteration. No hemorrhage. No edema, masses, or mass effect. Internal matias tory canals, cerebellopontine angles, mastoids normal. No enhancing lesions. No abnormal enhancement post contrast. DIFFUSION IMAGING: Negative for acute or subacute infarction. ORBITS: No masses. Globes normal. PARANASAL SINUSES: No fluid levels. Mucosa normal. OTHER: Along the inferior right mastoid, near the jugular foramen a 2.2 cm craniocaudad by 1.2 cm tra nsverse by 1.2 cm transverse nonenhancing soft tissue density is present, without definite mass effec t on the jugular vein. It is unclear whether this is normal marrow or a soft tissue nodule at the ju gular foramen. Dedicated CT temporal bones without and with contrast recommended for followup. Smal l amount of adjacent right mastoid air cell fluid. IMPRESSION: BONE MARROW SIGNAL VERSUS NODULE ALONG THE RIGHT JUGULAR FORAMEN, FOR WHICH DEDICATED CT TEMPORAL BONES WITHOUT AND WITH CONTRAST IS RECOMMENDED. OTHERWISE, NORMAL MRI OF THE BRAIN WITHOUT AND WITH INTRAVENOUS GADOLINIUM CONTRAST. EVIDENCE OF ACUTE STROKE: NO. TECHNICAL DOCUMENTATION: JOB ID: [id number] [employer]- All Rights Reserved
== END ==
LOC: RAD 09:59
PROVIDERS: ATTEND Internal Medicine
DX: C34.31 Malignant neoplasm of lower lobe, right bronchus or lung (principal)
CPT/HCPCS: 82565; 70553; A9577

== ENCOUNTER → 2017-06-06 | Outpatient (CLI) | payer SELFPAY ==
--- NOTE | 2017-06-07 09:33 | RADIOLOGY REPORT (SQ) ---
EXAM DESCRIPTION: PET CT SKULL/THIGH COMPLETED DATE/TIME: 06/06/2017 6:15 pm REASON FOR STUDY: LUNG CANCER C34.31 MALIGNANT NEOPLASM OF LOWER LOBE, RIGHT BRONCHUS OR L COMPARISON: None. RADIONUCLIDE AND DOSE: 10.4 mCi F18 FDG The route of agent administration: Intravenous FASTING BLOOD SUGAR: 87 mg/dl CONTRAST TYPE AND DOSE: No CT contrast given. TECHNIQUE: Blood glucose level was verified. Above dose of FDG was injected intravenously. 2-D seg mented attenuation correction images were obtained from the base of the skull to the midthighs. Nonc ontrast CT images were obtained for attenuation correction and fusion with emission images. CT image s were performed without oral or intravenous contrast and are not sensitive for parenchymal lesions. A series of overlapping emission PET images were obtained. Images reviewed and manipulated at [facility] work station by the radiologist. Images stored on PACS. LIMITATIONS: None. FINDINGS: HEAD AND NECK: Bilateral level 2 lymph nodes in the 7.0 mean SUV range, largest to left of midline measuring 1.5 cm. CHEST: Bilateral axillary nodes measuring up to about 1 cm in diameter and mean SUV 2.2 Hypermetaboli c station 4 pretracheal node measuring about 4.3 mean SUV and 1.6 cm in maximum diameter. Hypermetab olic right station 10 hilar node mean SUV 4.7. Hypermetabolic subcarinal station 7 node measuring ab out 4.9 mean SUV and 1 x 2 cm in diameter. Hypermetabolic 2.5 cm nodule medial right lower lobe diamante uring 10.9 mean SUV. ABDOMEN AND PELVIS: Extensive increased uptake in both lobes of the liver mean SUV 13-14 range. Tracey ral morphologic lesions in the liver, the largest in the left lobe at least 5.5 cm. PROXIMAL LOWER EXTREMITIES: No areas of abnormal metabolic activity in the soft tissues of the lower extremities. BONES: Extensive hypermetabolic skeletal lesions in the axial and appendicular skeleton. ADDITIONAL CT FINDINGS: At least 2 smaller nodules in both lungs, the largest about 1 cm in the left lower lobe which are not hypermetabolic. Left lobe of the liver extends almost to the pelvic brim. Multiple lytic lesions in the spine and pelvis. OTHER: No other significant findings. IMPRESSION: 1. Hypermetabolic right lower lobe nodule. 2. Soft tissue metastasis in the head and neck, chest, and liver. 3. Extensive bone metastasis. TECHNICAL DOCUMENTATION: JOB ID: [id number] [employer]- All Rights Reserved
== END ==
LOC: RAD 14:55
PROVIDERS: ATTEND Internal Medicine
DX: C34.31 Malignant neoplasm of lower lobe, right bronchus or lung (principal); C79.51 Secondary malignant neoplasm of bone
CPT/HCPCS: 78815; A9552

== ENCOUNTER 2017-06-09 12:36 | Outpatient (CLI) | payer SELFPAY ==
[~2017-06-09 12:36] MED LIST: BEVACIZUMAB IV PRN; CARBOPLATIN 625 MG in NORMAL SALINE 250 ML IV PRN; CYANOCOBALAMIN (VITAMIN B-12) INJ 1000 MCG/1 ML VIAL IM PRN; NORMAL SALINE 250 ML IV PRN; NORMAL SALINE IV PRN; ONDANSETRON HCL/PF 16 MG, DEXAMETHASONE SOD PHOSPHATE 10 MG in NORMAL SALINE 50 ML IV PRN; PEMETREXED DISODIUM IV PRN
[2017-06-09 14:21] VITALS: BP 136/78
== END 2017-06-09 17:03 | disposition home or self-care (01) ==
LOC: II 12:36 → 5TH 12:45 → II 17:03
PROVIDERS: ATTEND Internal Medicine
PROC: 3E0330M Introduction of Antineoplastic, Monoclonal Antibody, into Peripheral Vein, Percutaneous Approach (ICD-10-PCS; principal; 2017-06-09)
PROC: 3E03305 Introduction of Other Antineoplastic into Peripheral Vein, Percutaneous Approach (ICD-10-PCS; 2017-06-09)
PROC: 3E033GC Introduction of Other Therapeutic Substance into Peripheral Vein, Percutaneous Approach (ICD-10-PCS; 2017-06-09)
PROC: 3E013GC Introduction of Other Therapeutic Substance into Subcutaneous Tissue, Percutaneous Approach (ICD-10-PCS; 2017-06-09)
DX: Z51.11 Encounter for antineoplastic chemotherapy (principal); C34.31 Malignant neoplasm of lower lobe, right bronchus or lung
CPT/HCPCS: 96413; 96415; 96367; 96417; J3420; J9045; J2405; J7050; J1100; J9305 ×2; J9035 ×2

== ENCOUNTER 2017-06-10 15:15 | Outpatient (CLI) | payer MEDICAID ==
[~2017-06-10 15:15] MED LIST changes: -BEVACIZUMAB IV PRN; -CARBOPLATIN 625 MG in NORMAL SALINE 250 ML IV PRN; -CYANOCOBALAMIN (VITAMIN B-12) INJ 1000 MCG/1 ML VIAL IM PRN; -NORMAL SALINE 250 ML IV PRN; -NORMAL SALINE IV PRN; -ONDANSETRON HCL/PF 16 MG, DEXAMETHASONE SOD PHOSPHATE 10 MG in NORMAL SALINE 50 ML IV PRN; +PEGFILGRASTIM INJ 6 MG/0.6 ML DISP.SYRIN SUBCUT PRN; -PEMETREXED DISODIUM IV PRN
[2017-06-10 15:43] VITALS: BP 116/65
== END 2017-06-10 16:08 | disposition home or self-care (01) ==
LOC: 5TH 15:15 → II 15:15
PROVIDERS: ATTEND Internal Medicine
PROC: 3E013GC Introduction of Other Therapeutic Substance into Subcutaneous Tissue, Percutaneous Approach (ICD-10-PCS; principal; 2017-06-10)
DX: Z76.89 Persons encountering health services in other specified circumstances (principal); C34.31 Malignant neoplasm of lower lobe, right bronchus or lung; D70.1 Agranulocytosis secondary to cancer chemotherapy
CPT/HCPCS: 96372; J2505

== ENCOUNTER 2017-06-14 09:47 | Day surgery (SDC) | payer SELFPAY ==
[2017-06-14 10:49] LABS: HEMATOCRIT 33.6 % (36.0-47.0); HEMOGLOBIN 11.3 g/dL (12.0-15.5); HGB HCT DIFFERENCE 0.3; MEAN CORPUSCULAR HEMOGLOBIN 29.2 pg (27.0-33.4); MEAN CORPUSCULAR HGB CONC 33.6 g/dL (32.0-36.0); MEAN CORPUSCULAR VOLUME 87 fl (80-97); RED BLOOD COUNT 3.86 10^6/uL (3.72-5.28); RED CELL DISTRIBUTION WIDTH 16.1 % (11.5-14.0)
[2017-06-14 10:53] LABS: PROTHROMBIN TIME 15.5 SEC (11.4-15.4)
[2017-06-14 10:54] LABS: PARTIAL THROMBOPLASTIN TIME 31.2 SEC (23.5-35.8)
[2017-06-14 11:20] LABS: BLOOD UREA NITROGEN 58 mg/dL (7-20); CREATININE RESULT 1.45 mg/dL (0.52-1.25)
[2017-06-14 11:23] LABS: WHITE BLOOD COUNT 0.9 10^3/uL (4.0-10.5)
[2017-06-14] MEDS ORDERED: MIDAZOLAM 2 MG/2 ML INJ ONE (12:43)
[2017-06-14] MEDS ORDERED: FENTANYL CITRATE INJ/PF 100 MCG/2 ML AMPUL ONE (12:44)
[2017-06-14] MEDS ORDERED: OXYCODONE HCL IR 5 MG TABLET ONE (14:20)
--- NOTE | 2017-06-14 15:47 | RADIOLOGY REPORT (SQ) ---
EXAM DESCRIPTION: CT BIOPSY LIVER; CT NEEDLE PLACEMENT COMPLETED DATE/TIME: 06/14/2017 2:00 pm REASON FOR STUDY: MALIGNANT NEOPLASM LOWER LOBE; MALIGNANT NEOPLASM LOWER LOBE, LIVER BX C34.31 MAL IGNANT NEOPLASM OF LOWER LOBE, RIGHT BRONCHUS OR L COMPARISON: CT liver biopsy 05/21/2017 CT abdomen pelvis 05/21/2017 TECHNIQUE: After obtaining informed consent, the patient was brought to the CT suite and was placed supine on the CT gurney. The patient was prepped and draped in the usual sterile fashion . Axial huber ges were obtained for targeting of theleft lobe liver nodules. An appropriate access site was selecte d. IV sedation was administered and physician direction by the registered nurse using 1 milligrams of Versed and 100 micrograms of fentanyl. Physiologic monitoring was provided before, during, and after sedation. The total sedation time was 40 minutes. Documentation face to face time, the performing proceduralist, spent monitoring the patient: 10minute s. Noncontrasted CT of the liver was performed to localize an approach for the left lobe liver biopsy. A percutaneous site was marked. Time out was performed. After skin prep and local lidocaine for skin and deep tissue anesthesia, a coaxial biopsy needle sys tem was used to obtain several cores of tissue from the left lobe liver. These were submitted to the lab in formalin. No immediate postprocedure complications. Total of 4.[address] fluoro was used. All CT scanners at this facility use dose modulation, iterative reconstruction, and/or weight based d osing when appropriate to reduce radiation dose to as low as reasonably achievable (ALARA). [facility]: Dose Right [facility]: CareDose [facility]: Dose Right [facility]: Teradose 4D [facility]: [employer] RADIATION DOSE: Up-to-date CT equipment and radiation dose reduction techniques were employed. CTDIv ol: 4.0 - 20.2 mGy. DLP: 427 mGy-cm. mGy. LIMITATIONS: None. FINDINGS: CT guided liver biopsy as detailed above. IMPRESSION: CT GUIDED LEFT LOBE LIVER NODULE BIOPSY PERFORMED ABOVE. PATHOLOGY PENDING. NO IMM EDIATE COMPLICATIONS. COMMENT: Patient medication list reviewed:Yes- Quality ID# [id number]:Eligible professional attests to docu menting in the medical record they obtained, updated, or reviewed the patient's current medications.. Quality ID 145: Final reports for procedures using fluoroscopy that document radiation exposure corinna santino, or exposure time and number of fluorographic images (if radiation exposure indices are not avail able) TECHNICAL DOCUMENTATION: JOB ID: [id number] Quality ID # [id number]: Final reports with documentation of one or more dose reduction techniques (e.g., A utomated exposure control, adjustment of the mA and/or kV according to patient size, use of iterative reconstruction technique) 2010 [employer]- All Rights Reserved
[2017-06-14 16:54] VITALS: BP 109/72
== END 2017-06-14 16:00 | disposition home or self-care (01) ==
LOC: RAD 09:47
PROVIDERS: ATTEND Internal Medicine
PROC: 0FB23ZX Excision of Left Lobe Liver, Percutaneous Approach, Diagnostic (ICD-10-PCS; principal; 2017-06-14)
DX: C78.7 Secondary malignant neoplasm of liver and intrahepatic bile duct (principal); C34.31 Malignant neoplasm of lower lobe, right bronchus or lung; M19.90 Unspecified osteoarthritis, unspecified site; Z79.899 Other long term (current) drug therapy
CPT/HCPCS: 36415; 84520; 82565; 85027; 85610; 85730; 88305 ×2; 77012; 47000; J2250; J3010

== ENCOUNTER 2017-06-19 17:27 | Emergency (ER) | payer SELFPAY ==
[2017-06-19] MEDS ORDERED: NORMAL SALINE 1000 ML 1,000 ML IV ONE (17:55)
[2017-06-19] MEDS ORDERED: NORMAL SALINE 1000 ML 1,000 ML IV PRN (18:01)
[2017-06-19] MEDS ORDERED: CEFTRIAXONE 1 GM/D5W RTU 1 GM/50 ML RTUPB IV ONE (18:01)
[2017-06-19 18:11] LABS: ABSOLUTE LYMPHOCYTES (AUTO) 0.1 10^3/uL (0.5-4.7); EOSINOPHILS % (AUTO) 3.1 % (0-6); HEMATOCRIT 31.8 % (36.0-47.0); HEMOGLOBIN 10.6 g/dL (12.0-15.5); LYMPHOCYTES % (AUTO) 91.1 % (13-45); MEAN CORPUSCULAR HEMOGLOBIN 28.8 pg (27.0-33.4); MEAN CORPUSCULAR HGB CONC 33.5 g/dL (32.0-36.0); MEAN CORPUSCULAR VOLUME 86 fl (80-97); MONOCYTES % (AUTO) 1.8 % (3-13); RED BLOOD COUNT 3.69 10^6/uL (3.72-5.28)
[2017-06-19 18:12] LABS: PROTHROMBIN TIME 21.1 SEC (11.4-15.4)
[2017-06-19 18:13] LABS: VENOUS BLOOD BASE EXCESS -11.1 mmol/L; VENOUS BLOOD PCO2 29.1 mmHg (35-63); VENOUS BLOOD PH 7.3 (7.30-7.42)
--- NOTE | 2017-06-19 18:19 | ER Document Report ---
ED General - General Stated Complaint: POSSIBLE SEPTIC Time Seen by Provider: 06/19/17 18:01 Mode of Arrival: Medic Information source: Patient, Relative Notes: 51-year-old female history of stage IV lung CA last had chemotherapy on the presents with complaints of fever shortness of breath coughing up blood and vomiting. Patient notes she intermittently will vomit blood is never coughed blood up before Patient wishes to be intubated if needed TRAVEL OUTSIDE OF THE [place] IN LAST 30 DAYS: No - HPI Onset: Just prior to arrival Onset/Duration: Sudden Quality of pain: Achy Severity: Severe Pain Level: 2 Associated symptoms: Productive cough, Vomiting, Shortness of breath Exacerbated by: Denies Relieved by: Denies Similar symptoms previously: No Recently seen / treated by doctor: Yes - Related Data Allergies/Adverse Reactions: No Known Allergies Allergy (Unverified 05/20/17 18:32) Past Medical History - Social History Smoking Status: Former Smoker Cigarette use (# per day): No Chew tobacco use (# tins/day): No Smoking Education Provided: No Family History: Reviewed & Not Pertinent, Other - Brother with hepatitis C and hepatocellular carcinoma - Past Medical History Cardiac Medical History: Denies: Hx Coronary Artery Disease, Hx Heart Attack, Hx Hypertension Pulmonary Medical History: Denies: Hx Asthma, Hx Bronchitis, Hx COPD, Hx Pneumonia Neurological Medical History: Denies: Hx Cerebrovascular Accident, Hx Seizures Renal/ Medical History: Denies: Hx Peritoneal Dialysis Musculoskeltal Medical History: Reports Hx Arthritis - OSTEOARTHRITIS BILAT KNEE Past Surgical History: Reports: Hx Section - x2 - Immunizations Hx Diphtheria, Pertussis, Tetanus Vaccination: No - UNSURE Review of Systems - Review of Systems Notes: REVIEW OF SYSTEMS: CONSTITUTIONAL : Admits fever EENT: Denies eye, ear, throat, or mouth pain or symptoms. Denies nasal or sinus congestion or discharge. Denies throat, tongue, or mouth swelling or difficulty swallowing. CARDIOVASCULAR: Denies chest pain. Denies palpitations or racing or irregular heart beat. Denies ankle edema. RESPIRATORY: Admits to cough and blood GASTROINTESTINAL: Admits to vomiting GENITOURINARY: Denies difficulty urinating, painful urination, burning, frequency, blood in urine, or discharge. FEMALE GENITOURINARY: Denies vaginal bleeding, heavy or abnormal periods, irregular periods. Denies vaginal discharge or odor. MUSCULOSKELETAL: Denies back or neck pain or stiffness. Denies joint pain or swelling. SKIN: Denies rash, lesions or sores. HEMATOLOGIC : Denies easy bruising or bleeding. LYMPHATIC: Denies swollen, enlarged glands. NEUROLOGICAL: Denies confusion or altered mental status. Denies passing out or loss of consciousness. Denies dizziness or lightheadedness. Denies headache. Denies weakness or paralysis or loss of use of either side. Denies problems with gait or speech. Denies sensory loss, numbness, or tingling. Denies seizures. PSYCHIATRIC: Denies anxiety or stress. Denies depression, suicidal ideation, or homicidal ideation. ALL OTHER SYSTEMS REVIEWED AND NEGATIVE. PHYSICAL EXAMINATION: GENERAL: Extremely ill-appearing female hypotensive HEAD: Atraumatic, normocephalic. EYES: Pupils equal round and reactive to light, extraocular movements intact, conjunctiva are normal. ENT: Nares patent, oropharynx clear without exudates. Moist mucous membranes. NECK: Normal range of motion, supple without lymphadenopathy LUNGS: Crackles all throughout HEART: Tachycardic ABDOMEN: Soft, nontender, nondistended abdomen. No guarding, no rebound. No masses appreciated. Female : deferred Musculoskeletal: Normal range of motion, no pitting or edema. No cyanosis. NEUROLOGICAL: Cranial nerves grossly intact. Normal speech, normal gait. Normal sensory, motor exams PSYCH: Normal mood, normal affect. SKIN: Warm, Dry, normal turgor, no rashes or lesions noted. Dictation was performed using [employer] voice recognition software Physical Exam - Vital signs Vitals: Pulse Ox 99 06/19/17 17:36 Course - Re-evaluation Re-evalutation: 06/19/17 18:18 This is an extremely ill-appearing female who appears to be bleeding from her lung CA, family has been made aware of her extremely poor prognosis, airway kids has been placed in the room in preparation for intubation if needed 06/19/17 19:51 Patient was immediately transfused platelets, antibiotics were given 3 bags of IV fluids as well she continues to be hypotensive hypoxic tachycardic, I believe she will code soon, I have explained this to the family the patient, they are discussing if she wishes to continue being full code, they do request Dr. Perry who took care of them a month ago to come in and speak with them as well 06/19/17 20:10 Dr Shah agrees with comfort care 06/19/17 21:03 Pt peacefully with family in the room at 20:57 06/19/17 21:10 - Vital Signs Vital signs: Temp Pulse Resp BP Pulse Ox 0 L 94/76 L 74 L 06/19/17 21:00 06/19/17 20:11 06/19/17 20:11 - Laboratory Result Diagrams: 06/19/17 17:46 06/19/17 17:46 Laboratory results interpreted by me: 06/19/17 06/19/17 06/19/17 17:46 17:46 17:46 WBC 0.1 L* RBC 3.69 L Hgb 10.6 L Hct 31.8 L RDW 16.0 H Plt Count 10 L* Seg Neutrophils % 4.0 L Lymphocytes % 91.1 H Monocytes % 1.8 L Absolute Neutrophils 0.0 L Absolute Lymphocytes 0.1 L Absolute Monocytes 0.0 L PT 21.1 H VBG pCO2 VBG HCO3 Sodium 133.0 L Chloride 93 L Carbon Dioxide 14 L Anion Gap 26 H BUN 92 H Creatinine 3.01 H Est GFR ( Amer) 20 L Est GFR (Non-Af Amer) 16 L Lactic Acid Calcium 7.6 L Total Bilirubin 2.0 H Direct Bilirubin 1.7 H AST 96 H ALT 64 H Total Protein 5.6 L Albumin 3.0 L 06/19/17 06/19/17 17:46 17:46 WBC RBC Hgb Hct RDW Plt Count Seg Neutrophils % Lymphocytes % Monocytes % Absolute Neutrophils Absolute Lymphocytes Absolute Monocytes PT VBG pCO2 29.1 L VBG HCO3 14.0 L Sodium Chloride Carbon Dioxide Anion Gap BUN Creatinine Est GFR ( Amer) Est GFR (Non-Af Amer) Lactic Acid 7.4 H Calcium Total Bilirubin Direct Bilirubin AST ALT Total Protein Albumin - Diagnostic Test Radiology reviewed: Image reviewed, Reports reviewed Critical Care Note - Critical Care Note Total time excluding time spent on procedures (mins): 75 Discharge - Discharge Clinical Impression: , low platelets , Hypoxemia Lung cancer Qualifiers: Laterality: unspecified laterality Lung location: unspecified part of lung Qualified Code(s): C34.90 - Malignant neoplasm of unspecified part of unspecified bronchus or lung Hypotension Qualifiers: Hypotension type: unspecified hypotension type Qualified Code(s): I95.9 - Hypotension, unspecified Condition: Critical Disposition:
[2017-06-19 18:23] LABS: ALANINE AMINOTRANSFERASE 64 U/L (9-52); ALKALINE PHOSPHATASE 87 U/L (38-126); ASPARTATE AMINO TRANSFERASE 96 U/L (14-36); BILIRUBIN,DIRECT 1.7 mg/dL (0.0-0.4); BLOOD UREA NITROGEN 92 mg/dL (7-20); CALCIUM 7.6 mg/dL (8.4-10.2); CARBON DIOXIDE 14 mmol/L (22-30); CHLORIDE 93 mmol/L (98-107); GLUCOSE 102 mg/dL (75-110); POTASSIUM 3.9 mmol/L (3.6-5.0); TOTAL PROTEIN 5.6 g/dL (6.3-8.2)
[2017-06-19 18:29] LABS: CREATININE RESULT 3.01 mg/dL (0.52-1.25)
[2017-06-19 18:30] LABS: ANION GAP 26 (5-19)
[2017-06-19 18:42] LABS: ANISOCYTOSIS 1+; POIKILOCYTOSIS SLIGHT
--- NOTE | 2017-06-19 18:44 | RADIOLOGY REPORT (SQ) ---
EXAM DESCRIPTION: CHEST SINGLE VIEW COMPLETED DATE/TIME: 06/19/2017 6:32 pm REASON FOR STUDY: HEMOPTYSIS, LUNG Ca COMPARISON: 05/20/2017 radiograph and 05/21/2017 CT EXAM PARAMETERS: NUMBER OF VIEWS: One view. TECHNIQUE: Single frontal radiographic view of the chest acquired. RADIATION DOSE: NA LIMITATIONS: None. FINDINGS: LUNGS AND PLEURA: The patient's known 2.1 cm right lower lobe mass is not adequately visua lized by radiography. No new focal consolidation. No pleural effusion. No pneumothorax. MEDIASTINUM AND HILAR STRUCTURES: Known mediastinal lymphadenopathy is not evident by radiography. M ediastinum appears stable. HEART AND VASCULAR STRUCTURES: Heart normal in size. Normal vasculature. BONES: No acute findings. HARDWARE: None in the chest. OTHER: No other significant finding. IMPRESSION: Known 2.1 cm right lower lobe pulmonary mass and mediastinal lymphadenopathy are not moon dent by radiography. Short interval stability in the patient's chest radiograph. TECHNICAL DOCUMENTATION: JOB ID: [id number] [employer]- All Rights Reserved
[2017-06-19 18:46] LABS: WHITE BLOOD COUNT 0.1 10^3/uL (4.0-10.5)
[2017-06-19] MEDS ORDERED: NORMAL SALINE 250 ML IV PRN ×2 (18:53)
[2017-06-19] MEDS ORDERED: HYDROMORPHONE HCL INJ/PF 2 MG/ML AMPULE IV ONE ×2 (20:04→20:45)
[2017-06-19] MEDS ORDERED: DIAZEPAM INJ 10 MG/2 ML DISP.SYRIN IV ONE ×2 (20:04→20:38)
[2017-06-19] MEDS ORDERED: PIPERACILLIN/TAZOBACTAM 3.375 GM VIAL IV ONE (20:38)
[2017-06-19 20:52] VITALS: BP 94/76
--- NOTE | 2017-06-21 06:02 | EKG REPORT ---
SEVERITY:- BORDERLINE ECG - SINUS TACHYCARDIA BORDERLINE LEFT AXIS DEVIATION BORDERLINE R WAVE PROGRESSION, ANTERIOR LEADS MINIMAL ST DEPRESSION, LATERAL LEADS : Confirmed by: Lacey Islas MD 21-Jun-2017 06:01:05
[2017-06-21 13:46] LABS: PATH REVIEW PATHOLOGIST REVIEWED
== END 2017-06-19 20:57 | disposition expired ==
LOC: ER 17:27
DX: R09.02 Hypoxemia (principal); D69.6 Thrombocytopenia, unspecified; C34.90 Malignant neoplasm of unspecified part of unspecified bronchus or lung; I95.9 Hypotension, unspecified
CPT/HCPCS: 93005; 99291; 99292; 96375; 96365; 86900; 86901; 36415; 87040; 36430; 85025; 85610; 87077; 80053; 87186; 82803; 83605; 71010; 93010; P9035; J3360; J1170; J0696